=== PATIENT | female | born 1985 | race Caucasian/White ===

== ENCOUNTER 2019-09-28 16:08 | Emergency (ER) | payer MEDICAID, SELFPAY ==
[~2019-09-28] VITALS: Ht 157.5 cm; Wt 75.0 kg
[2019-09-28 16:10] VITALS: BP 164/114
--- NOTE | 2019-09-28 17:09 | NUR ---
DRAFTING DETAILER: PT LEFT FROM LOBBY BEFORE GETTING ROOMED. SIGNED AMA FORM.
--- NOTE | 2019-09-28 17:10 | NUR ---
MILL ORDER SCHEDULER: SRIDHAR ELLIS, PT LEFT AMA. SIGNED FORM.
== END 2019-09-28 17:11 ==
LOC: ED 17:05
DX: R07.89 Other chest pain (principal); Z53.21 Procedure and treatment not carried out due to patient leaving prior to being seen by health care provider
CPT/HCPCS: 93005